=== PATIENT | male | born 1945 | race Caucasian/White ===

== ENCOUNTER 2017-11-06 05:07 | Emergency (ER) | payer MEDICARE, OTHER ==
[~2017-11-06] VITALS: Ht 177.8 cm; Wt 120.2 kg
[~2017-11-06 05:07] MED LIST: ACYCLOVIR PO; ASP81TEC PO; FURO20TA4 PO; HYDR-2889 PO; HYDR-3583 PO; KCL20TCR PO; OMEP-10 PO; SMV20T PO; TEST75GE3 TOP; TESTOSTERONE
[2017-11-06] MEDS ORDERED: fentaNYL INJECTION 100 MCG/2 ML AMP ONE (05:20)
[2017-11-06] MEDS ORDERED: fentaNYL INJECTION 100 MCG/2 ML AMP IVP ONE ×3 (05:30→06:45)
[2017-11-06 05:43] LABS: BASOPHILS % (AUTO) 0 % (0-10); EOSINOPHILS # (AUTO) 0.3 10^3/uL (0.0-0.3); EOSINOPHILS % (AUTO) 4 % (0-10); HEMATOCRIT 40 % (40-54); HEMOGLOBIN 13.9 G/DL (13.3-17.7); LYMPHOCYTES # (AUTO) 1.9 X 10^3 (1.0-4.0); LYMPHOCYTES % (AUTO) 29 % (12-44); MEAN CORPUSCULAR HEMOGLOBIN 31 PG (25-34); MEAN CORPUSCULAR HGB CONC 35 G/DL (32-36); MEAN CORPUSCULAR VOLUME 90 FL (80-99); MEAN PLATELET VOLUME 10.7 FL (7.4-10.4); MONOCYTES # (AUTO) 0.7 X 10^3 (0.0-1.0); MONOCYTES % (AUTO) 11 % (0-12); NEUTROPHILS # (AUTO) 3.8 X 10^3 (1.8-7.8); NEUTROPHILS % (AUTO) 57 % (42-75); PLATELET COUNT 198 10^3/uL (130-400); RED BLOOD COUNT 4.47 10^6/uL (4.35-5.85); RED CELL DISTRIBUTION WIDTH 14.7 % (10.0-14.5); WHITE BLOOD COUNT 6.8 10^3/uL (4.3-11.0)
[2017-11-06 06:00] LABS: ALANINE AMINOTRANSFERASE 20 U/L (0-55); ALBUMIN 4.3 GM/DL (3.2-4.5); ALKALINE PHOSPHATASE 76 U/L (40-136); BILIRUBIN,TOTAL 0.4 MG/DL (0.1-1.0); BUN/CREATININE RATIO 17; CALCIUM 9.7 MG/DL (8.5-10.1); CARBON DIOXIDE 26 MMOL/L (21-32); CHLORIDE 102 MMOL/L (98-107); CREATININE SERUM 1.17 MG/DL (0.60-1.30); GFR ESTIMATED > 60; GLUCOSE 107 MG/DL (70-105); LIPASE 19 U/L (8-78); SODIUM 137 MMOL/L (135-145); TOTAL PROTEIN 7.1 GM/DL (6.4-8.2)
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
[2017-11-06 06:07] LABS: BILIRUBIN,URINE NEGATIVE (NEGATIVE); CLARITY,URINE CLEAR; COLOR,URINE YELLOW; GLUCOSE, URINE (UA) NEGATIVE (NEGATIVE); KETONES,URINE NEGATIVE (NEGATIVE); LEUKOCYTE ESTERASE ,URINE NEGATIVE (NEGATIVE); NITRITE,URINE NEGATIVE (NEGATIVE); PH,URINE 7 (5-9); PROTEIN,URINE NEGATIVE (NEGATIVE); UROBILINOGEN,URINE NORMAL (NORMAL)
[2017-11-06 06:19] LABS: BACTERIA,URINE NEGATIVE /HPF
[2017-11-06] MEDS ORDERED: HYDROmorphone 1 MG/ML (DILAUDID) 1 ML SYRINGE IV ONE (07:15)
--- NOTE | 2017-11-06 08:33 | Diagnostic Imaging Report ---
PROCEDURE: US Gallbladder. TECHNIQUE: Multiple real-time grayscale images were obtained over the right upper quadrant in various projections. INDICATION: Abdominal pain There are no prior ultrasound studies available for comparison. The CT chest exam of 02/22/2010 failed to show any sign of the visualized gallbladder or liver. There was a large hiatal hernia. The gallbladder is not fully distended. There are small nonmobile echogenic densities adjacent to the wall of the gallbladder. These could represent adherent calculi. It would be less likely that they're related to polyps. The gallbladder wall itself is not thickened and there is no pericholecystic fluid to suggest acute cholecystitis. The common bile duct was not visualized. The liver is mildly enlarged measuring 20 CM in length. There is no focal mass involving the liver and the biliary tree is not abnormally distended. The right kidney is unremarkable. The pancreas and proximal aorta were not well imaged. Impression: 1. The echogenic densities adjacent to the gallbladder wall may well be adherent calculi. However there is no evidence for acute cholecystitis. Even so, clinical concern regarding an acute abnormality of the gallbladder persists, then nuclear medicine hepatobiliary scan would be recommended. 2. The common bile duct was not visualized. 3. There is mild hepatomegaly. 4. These results were discussed with Dr. Matute in ER. Dictated by: Dictated on workstation # [id number]
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
[2017-11-06] MEDS ORDERED: ONDA4TAB11 PO (10:01)
[2017-11-06] MEDS ORDERED: DICL50TA6 PO (10:01)
[2017-11-06] MEDS ORDERED: HYDR-3820 PO (10:01)
[2017-11-06 10:27] VITALS: BP 172/85
== END 2017-11-06 10:31 | disposition home or self-care (01) ==
LOC: EDUNIT# 05:07 → ER 05:08
DX: R10.11 Right upper quadrant pain (principal); I25.10 Atherosclerotic heart disease of native coronary artery without angina pectoris; I25.2 Old myocardial infarction; Z85.46 Personal history of malignant neoplasm of prostate; Z79.82 Long term (current) use of aspirin; Z95.1 Presence of aortocoronary bypass graft; Z87.01 Personal history of pneumonia (recurrent)
CPT/HCPCS: 36415; 72128; 72131; 76705; 80053; 81000; 83690; 85025; 96374; 96375; 96376

== ENCOUNTER → 2017-11-07 | Outpatient (CLI) | payer MEDICARE, OTHER ==
[~2017-11-07] MED LIST changes: +CATHETER FLUSH 10 ML SYR IV PRN; +DICL50TA6 PO; +HYDR-3820 PO; +ONDA4TAB11 PO; +morphine INJ 10 MG/ML 1ML (SYR OR VIAL) ONE
--- NOTE | 2017-11-07 18:04 | Diagnostic Imaging Report ---
EXAMINATION: Nuclear medicine hepatobiliary scan. INDICATION: Right upper quadrant pain. TECHNIQUE: This study was performed following administration of 5.02 mCi of 99m-technetium Choletec. FINDINGS: There are no previous nuclear medicine studies available for comparison. The gallbladder ultrasound exam of 11/06/2017 raised a question of adherent calculi within the gallbladder. There was no sign of acute cholecystitis, however. On this exam, there is no uptake of the radiotracer by the gallbladder after 60 minutes. 3.2 mg of morphine was administered and 1.0 mCi of Choletec was injected. Imaging for another hour again failed to show any uptake of the radiotracer by the gallbladder. The reason for the absence of the uptake by the gallbladder is not certain but may well be secondary to edema of the cystic duct related to acute cholecystitis. Clinical followup is recommended. There is extension of the radiotracer into the small bowel indicating that the common bile duct is not obstructed. IMPRESSION: 1. There is no visualization of the gallbladder. This may be due to acute cholecystitis. Clinical followup is recommended. 2. These results were called to Dr. Verna Alcala. Dictated by: Dictated on workstation # [id number]
== END ==
LOC: CARD 12:42
PROVIDERS: ATTEND Internal Medicine
DX: R10.11 Right upper quadrant pain (principal); R93.2 Abnormal findings on diagnostic imaging of liver and biliary tract
CPT/HCPCS: 78226

== ENCOUNTER → 2020-09-19 | Outpatient (CLI) | payer MEDICARE, OTHER ==
[~2020-09-19] MED LIST changes: +ACHYD1T PO; -HYDR-3820 PO; -morphine INJ 10 MG/ML 1ML (SYR OR VIAL) ONE
--- NOTE | 2020-09-19 19:12 | Diagnostic Imaging Report ---
Whole body bone scan INDICATION: Right knee pain This study was performed following the administration of 25.7 mCi 99m technetium MDP. Anterior and posterior whole body images were obtained. In addition, blood flow, blood pool and delayed images of both knee joints were also performed. The previous three-phase bone scan exam of 12/19/2012 noted increased activity about the total knee prosthesis on the right. The possibility that this is related to loosening of the prosthesis was raised. On this exam, the delayed images of the knees reveal that there are now 2 focal areas of increased uptake along the medial aspect of the distal femur. There is also another focal area of increased activity involving the lateral half of the midshaft of the distal 3rd of the femur. 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 There is also intense uptake within the medial aspect of the left calcaneus. While this could be due to degenerative disease, the possibility that there is an acute bony abnormality in this area should also be considered. If clinically indicated, a 3 view study of the left ankle would be recommended. There is no other abnormal signal arising from the osseous structures to suggest bone edema or a fracture. There is severe degenerative disease involving the left knee joint and both shoulder joints. There is also moderate degenerative disease of the hip joints. On the posterior images, there is an area of increased signal involving the left lateral aspect of T11. I suspect this is due to degenerative disease. There is no other focal abnormality identified to indicate an acute abnormality. Both kidneys do show excretion of the radiotracer. IMPRESSION: 1. 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 Clinical follow-up is recommended. 2. The focal area of intense uptake along the medial aspect of the left ankle may be related to an acute injury. Recommendations as above. 3. There is no other abnormal uptake to suggest an acute abnormally. Dictated by: Dictated on workstation # [id number]
== END ==
LOC: CARD 11:44
PROVIDERS: ATTEND Orthopaedic Surgery Adult Reconstructive Orthopaedic Surgery
DX: M25.561 Pain in right knee (principal); Z96.651 Presence of right artificial knee joint
CPT/HCPCS: 78306; A9503

== ENCOUNTER → 2020-12-21 | Outpatient (CLI) | payer MEDICARE, OTHER ==
[~2020-12-21] MED LIST changes: -CATHETER FLUSH 10 ML SYR IV PRN
== END ==
LOC: LABNPT 06:30
PROVIDERS: ATTEND Internal Medicine
DX: Z20.822 Contact with and (suspected) exposure to COVID-19 (principal)
CPT/HCPCS: 87636

== ENCOUNTER → 2021-03-10 | Outpatient (CLI) | payer MEDICARE, OTHER | LOC: LABNPT 05:50 | PROVIDERS: ATTEND Internal Medicine | DX: Z20.822 Contact with and (suspected) exposure to COVID-19 (principal) | CPT/HCPCS: 87635 ==